=== PATIENT | male | born 2000 | race Caucasian/White ===

== ENCOUNTER 2020-08-01 17:13 | Emergency (ER) | payer MEDICAID, SELFPAY ==
[2020-08-01] VITALS (17 sets, daily range): BP systolic 120–146; BP diastolic 59–89; PULSE 65–87; RESP 11–23; TEMP 37.1; O2SAT 97–99
--- NOTE | 2020-08-01 17:30 | DI.RAD_ITS ---
EXAM: XR SHOULDER LT COMPLETE 2+V CLINICAL HISTORY: s/p dislocation, r/o fracture. TECHNIQUE: 2D digital imaging was performed. COMPARISON: No exams were available for comparison FINDINGS: There is an anterior shoulder dislocation. The humeral head appears impacted on the anteroinferior margin of the glenoid. There is a small fracture fragment seen beneath the glenoid. A bone island i s noted in the humeral head. The AC joint is not widened. The visualized portions of the left ribs appear intact. No pneumothorax is seen. IMPRESSION: Anterior shoulder dislocation and fracture fragment at the inferior glenoid. DATA REPOSITORY: RADIATION DOSE DELIVERED:
--- NOTE | 2020-08-01 17:39 | W.ED.GENAD ---
Discharge Plan Disposition Patient Disposition: HOME Condition: Good Discharge Details Clinical Impression: Shoulder dislocation Primary Care Provider: None,None ED Provider: Francy Turpin Home Meds and New Rx's Prescriptions: No Action No Known Home Meds RF: 0 Discharge Instructions Instructions: Shoulder Dislocation (ED) Additional Instructions: Rest, ice, and elevate the affected area as much as possible. Alternate tylenol and motrin as needed and directed for pain. Call your orthopedist in [place] to schedule a follow-up appointment for reevaluation within the next 1 to 2 weeks. Return immediately to the emergency department if you develop any worsening or new concerning symptoms. Discharge Data Discharge Date/Time-TO BE ENTERED AT DEPARTURE: 08/01/20 19:58 Discharge Physician: Francy Turpin Medical Decision Making 20-year-old male with a history of recurrent shoulder dislocation presents with left shoulder dislocation that occurred 3 hours ago after lifting up his arm. Left shoulder appears deformed. No open wounds. He is neurovascular intact. X-ray confirmed a left anterior shoulder dislocation. No obvious fracture noted. Patient given a total of 200 mg propofol with respiratory at bedside with successful reduction. Patient placed in sling. He remains neurovascularly intact. X-ray confirmed successful reduction. Patient was continued to be monitored and remained hemodynamically stable and was able to ambulate in no acute distress. Patient states he has followed up with orthopedics at [facility] and will plan to do this. Patient did not want to stay for final result of the postreduction x-ray. Usual and customary return precautions given prior to discharge. Postreduction x-ray after discharge noted 1. Interval reduction of the anterior joint dislocation. 2. Linear density inferior to the glenoid rim is concerning for fracture, which could have been present but not well seen on the prior examination. A CT scan is recommended for further evaluation. Called patient at home and informed him of these xray findings. I discussed that the treatment with a sling does not change at this time but he is still recommended to follow-up with orthopedics for further evaluation. The call was dropped mid conversation and I attempted to call him back but he didn't answer. Medical Records Medical records reviewed: Yes I reviewed the patient's medical records. Imaging Data Radiologic Study: Radiologist's impression: XR Left Shoulder Exam date and time: 08/01/2020 5:47 PM Age: 20 years old Clinical indication: Pain; Shoulder; Left; Patient HX: S/P dislocation, R/O fracture TECHNIQUE: Imaging protocol: XR Left shoulder. Views: 2 or more views. COMPARISON: No relevant prior studies available. FINDINGS: Bones/joints: There is an anterior dislocation of the shoulder joint with the humeral head located anterior to the glenoid fossa. A focal cortical depression is noted at the mid aspect of the humeral head, which likely represents the bicipital groove. A focus of increased density is noted at the head neck junction which could represent a bone island or secondary to prior injury. Soft tissues: No large soft tissue abnormality seen. IMPRESSION: 1. Anterior shoulder dislocation without evidence of large fracture. If there is persistent clinical concern for fracture, CT or MRI may be considered. 2. Focus of increased density at the head neck junction which could represent a bone island or secondary to prior injury. If there is clinical concern for an aggressive lesion, comparison with prior imaging is recommended or further imaging may be pursued. XR Left Shoulder Exam date and time: 08/01/2020 7:20 PM Age: 20 years old Clinical indication: Screening exam; Post-reduction L shoulder; Patient HX: Shoulder dislocation TECHNIQUE: Imaging protocol: XR Left shoulder. Views: 2 or more views. COMPARISON: CR XR SHOULDER LT COMPLETE 2+V 08/01/2020 6:26 PM FINDINGS: Bones/joints: There has been interval reduction of the previously noted anterior shoulder dislocation. There is a linear osseous density below the glenoid rim, which is concerning for a fracture. 2.2 cm increased density at the head neck junction of the humerus is redemonstrated as addressed on the prior examination. Soft tissues: No large soft tissue abnormality. IMPRESSION: 1. Interval reduction of the anterior joint dislocation. 2. Linear density inferior to the glenoid rim is concerning for fracture, which could have been present but not well seen on the prior examination. A CT scan is recommended for further evaluation. HPI General Mode of arrival: ambulatory. Date/Time Provider Initiated Documentation: 08/01/20 17:16. Limitations to Documentation: no limitations. Information obtained by: patient. HPI Narrative: Patient is a 20-year-old male with a history of recurrent shoulder dislocation who presents with shoulder dislocation after lifting his arm above his head 3 hours prior to arrival. Patient states his last dislocation was 2 months ago. Patient states he usually goes to [facility] and has it reduced with sedation. He states he has tolerated propofol in the past before. Related Data Home Medications Medication Instructions Recorded Confirmed Unknown [No Known Home Meds] 08/01/20 08/01/20 Allergies Allergy/AdvReac Type Severity Reaction Status Date / Time No Known Allergies Allergy Unverified 08/01/20 17:21 General Stated Complaint: Orthopedic SANDRA: 3 Review of Systems All systems reviewed & are unremarkable except as noted in HPI and below Constitutional Constitutional: Reports as per HPI, Denies chills and Denies fever(s) Eyes Eyes: Denies blurry vision ENT Ears, Nose, Mouth, and Throat: Denies dizziness, Denies sore throat and Denies throat swelling Cardiovascular Cardiovascular: Denies chest pain and Denies dyspnea Respiratory Respiratory: Denies cough and Denies dyspnea Gastrointestinal Gastrointestinal: Denies abdominal pain, Denies diarrhea and Denies vomiting Genitourinary Genitourinary: Denies hematuria and Denies dysuria Musculoskeletal Musculoskeletal: Denies back pain and Denies numbness Integumentary/Breasts Skin/Breast: Denies lesions and Denies rash Neurologic Neurologic: Denies dizziness, Denies localized weakness and Denies numbness Allergic/Immunologic Allergic/Immunologic: Denies throat swelling [facility] Medical History (Updated 08/01/20 @ 19:54 by Francy Turpin DO) Shoulder dislocation, recurrent Surgical History (Updated 08/01/20 @ 18:22 by Francy Turpin DO) No significant past surgical history Social History Smoking/Tobacco Use Status: Current every day Smoking risk assessment performed?: Yes Alcohol Intake: current Alcohol Intake frequency: 3 or more drinks per day Alcohol type: beer Drug use: Never Substance use type: does not use Do you feel safe at home: Yes Do you feel safe in your relationship?: Yes Exam Const General: cooperative, healthy appearing and no acute distress HENMT Head: normal to inspection Mouth: oral mucosae normal Eyes General: appearance normal, both eyes and all related structures Neck Neck: normal visual inspection Resp Effort & Inspection: normal respiratory effort and able to speak in complete sentences Cardio Rate: regular rate Skin General skin exam: no rashes or lesions noted Neuro General: patient alert, patient awake and patient oriented x3 Motor: muscle tone normal throughout Psych Appearance: grossly normal Affect: normal affect Course Vital Signs Vital signs: Vital Signs Temperature 98.8 F 08/01/20 17:18 Pulse 74 08/01/20 17:18 Respiratory Rate 18 08/01/20 17:18 Blood Pressure 146/83 H 08/01/20 17:18 Pulse Oximetry 97 08/01/20 17:18 Temperature 98.8 F 08/01/20 17:18 Temperature Source Temporal Artery Scan 08/01/20 17:18 Pulse 74 08/01/20 17:18 Respiratory Rate 18 08/01/20 17:18 Respiratory Effort Non-Labored 08/01/20 17:21 Blood Pressure 146/83 H 08/01/20 17:18 Blood Pressure Position Sitting 08/01/20 17:18 Pulse Oximetry 97 08/01/20 17:18 Oxygen Delivery Method Room Air 08/01/20 17:18 Oxygen Flow Rate 0 08/01/20 17:18 Pain Level 8 08/01/20 17:21 Procedures Orthopedic Joint Reduction Joint #1: Time Out Performed: Yes Side: left Joint Reduction Location: shoulder Analgesia: procedural sedation Shoulder Technique Used (if applicable): traction/counter-traction and external rotation Post-reduction neuro exam: intact Post-reduction vascular: intact Post Reduction X-Ray Obtained: Yes Post Reduction X-Ray Results: reduced Splint Applied: Yes Patient Tolerated Procedure: well
--- NOTE | 2020-08-01 18:45 | DI.RAD_ITS ---
EXAM: XR SHOULDER LT COMPLETE 2+V CLINICAL HISTORY: post-reduction film, confirm. TECHNIQUE: 2D digital imaging was performed. COMPARISON: CR,XR XR SHOULDER LT COMPLETE 2+V from 08/01/2020 FINDINGS: BONES: A fracture fragment is seen positioned beneath the glenoid. There is a declivity in the twan l head, suspicious for a Hill-Sachs lesion. A bone island is seen in the humeral head. JOINTS: The previously noted dislocation has been reduced. SOFT TISSUE: Normal. IMPRESSION: Status post reduction of previously noted dislocation. Hill-Sachs and Bankart lesions are suspected. DATA REPOSITORY: RADIATION DOSE DELIVERED:
[2020-08-01] MEDS: Propofol 200 MG/20 ML VIAL IVP (18:56)
--- NOTE | 2020-08-01 19:10 | DI.VRAD_ITS ---
PROCEDURE INFORMATION: Exam: XR Left Shoulder Exam date and time: 08/01/2020 5:47 PM Age: 20 years old Clinical indication: Pain; Shoulder; Left; Patient HX: S/P dislocation, R/O fracture TECHNIQUE: Imaging protocol: XR Left shoulder. Views: 2 or more views. COMPARISON: No relevant prior studies available. FINDINGS: Bones/joints: There is an anterior dislocation of the shoulder joint with the humeral head located anterior to the glenoid fossa. A focal cortical depression is noted at the mid aspect of the humeral head, which likely represents the bicipital groove. A focus of increased density is noted at the head neck junction which could represent a bone island or secondary to prior injury. Soft tissues: No large soft tissue abnormality seen. IMPRESSION: 1. Anterior shoulder dislocation without evidence of large fracture. If there is persistent clinical concern for fracture, CT or MRI may be considered. 2. Focus of increased density at the head neck junction which could represent a bone island or secondary to prior injury. If there is clinical concern for an aggressive lesion, comparison with prior imaging is recommended or further imaging may be pursued. Dictated and Authenticated by: Trupti Gallo MD. Ordering:ELO Sen MD
--- NOTE | 2020-08-01 19:35 | RESPIRATORY ---
RT arrived at bedside for conscious sedation at 18:35. Pt here for reduction of dislocated shoulder. RT had O2 via nasal cannula with etCO2 monitor, suction tubing with yankauer tip attached, and BVM set up at the head of the bed before procedure. Pre-sedation vital signs were RR 14 / HR 75 / SpO2 99% on RA / EtCO2 40 / BP 134/89. Pt given final dose of sedation from nurse at 18:56, reduction completed by Dr Turpin at 18:58. Average vital signs through sedation were RR 14-20 / HR 65-80 / SpO2 97-100% on 2L nasal cannula (precautionary supplemental O2 given) / EtCO2 35-50 / BP 120-139 / 59-88. RT and nursing stayed at bedside post reduction while pt woke back up from sedation. Pt was observed to be awake, alert and oriented when RT left with post procedure vitals of RR 15 / HR 80 / SpO2 98% on RA / EtCO2 38 / BP 129/68. RT was cleared by nursing and Dr Turpin to leave the ED at 19:28.
--- NOTE | 2020-08-01 20:20 | DI.VRAD_ITS ---
PROCEDURE INFORMATION: Exam: XR Left Shoulder Exam date and time: 08/01/2020 7:20 PM Age: 20 years old Clinical indication: Screening exam; Post-reduction L shoulder; Patient HX: Shoulder dislocation TECHNIQUE: Imaging protocol: XR Left shoulder. Views: 2 or more views. COMPARISON: CR XR SHOULDER LT COMPLETE 2+V 08/01/2020 6:26 PM FINDINGS: Bones/joints: There has been interval reduction of the previously noted anterior shoulder dislocation. There is a linear osseous density below the glenoid rim, which is concerning for a fracture. 2.2 cm increased density at the head neck junction of the humerus is redemonstrated as addressed on the prior examination. Soft tissues: No large soft tissue abnormality. IMPRESSION: 1. Interval reduction of the anterior joint dislocation. 2. Linear density inferior to the glenoid rim is concerning for fracture, which could have been present but not well seen on the prior examination. A CT scan is recommended for further evaluation. Dictated and Authenticated by: Trupti Gallo MD. Ordering:ELO Sen MD
== END 2020-08-01 19:58 | disposition home or self-care (01) ==
PROVIDERS: Emergency Provider Physician Assistant
DX: M24.412 Recurrent dislocation, left shoulder (principal); S43.015A Anterior dislocation of left humerus, initial encounter; X50.9XXA Other and unspecified overexertion or strenuous movements or postures, initial encounter
CPT/HCPCS: 23650; 96374; 96375; 73030; J2704